=== PATIENT | male | born 1955 | race Two or more races ===

== ENCOUNTER 2017-10-27 14:47 | Emergency (ER) | payer MEDICARE, OTHER ==
[~2017-10-27] VITALS: Ht 170.2 cm; Wt 78.9 kg
--- NOTE | 2017-10-27 14:50 | NUR ---
[id number] FROM [address] FOR ALOC, TACHYCARDIA. Hx OF METHAMPHETAMINE ABUSE. GOWNED AND PLACED ON CONT MONITOR. HEART RATE NOTED 167, RHYTHM APPEARS SVT. PT DENIES CP/SOB. ALL NEEDS ARE ATTENDED, DR LOPEZ NOTIFIED
--- NOTE | 2017-10-27 15:00 | NUR ---
PT RHYTHM CONVERTED TO SINUS RHYTM AT 82. PT HAS NO COMPLAINTS
[2017-10-27] MEDS ORDERED: IV NS 0.9% 1,000 ML BAG IV ONE (15:30)
[2017-10-27 15:38] LABS: BASOPHILS # (AUTO) 0.2 /CMM (0.0-0.2); BASOPHILS % (AUTO) 2.1 % (0.0-2.0); EOSINOPHILS % (AUTO) 0.4 % (0.0-6.0); HEMATOCRIT 45 % (39-51); HEMOGLOBIN 14.9 g/dL (13.5-17.5); LYMPHOCYTES # (AUTO) 1.1 /CMM (0.8-4.8); LYMPHOCYTES % (AUTO) 13.9 % (20.0-44.0); MEAN CORPUSCULAR HGB CONC 33 g/dl (31.0-36.0); MEAN CORPUSCULAR VOLUME 85 fL (80-96); MONOCYTES # (AUTO) 0.6 /CMM (0.1-1.30); MONOCYTES % (AUTO) 7.6 % (2.0-12.0); NEUTROPHILS # (AUTO) 5.7 /CMM (1.8-8.9); PLATELET COUNT (AUTO) 260 /CMM (150-450); RDW COEFFICIENT OF VARIATION 13.7 (11.5-15.0); RED BLOOD CELL COUNT(AUTO) 5.27 MIL/uL (4.5-6.0); WHITE BLOOD COUNT (AUTO) 7.6 K/uL (4.3-11.0)
[2017-10-27 15:59] LABS: ALBUMIN 3.5 g/dL (3.4-5.0); BILIRUBIN,TOTAL 0.8 mg/dL (0.2-1.0); CALCIUM, SERUM 9.5 mg/dL (8.5-10.1); CREATININE 1.7 mg/dL (0.6-1.3); POTASSIUM 5.2 mmol/L (3.5-5.1); TOTAL PROTEIN, SERUM 7.7 g/dL (6.4-8.2)
--- NOTE | 2017-10-27 17:22 | NUR ---
IV removed. Catheter intact and site benign. Pressure and 4x4 applied to site. No bleeding noted.Patient discharged to home in stable condition. Written and verbal after care instructions given. Patient verbalizes understanding of instruction.
[2017-10-27 17:28] VITALS: BP 105/68
== END 2017-10-27 17:28 | disposition home or self-care (01) ==
LOC: ER 14:48
DX: I47.1 Supraventricular tachycardia (principal); R42 Dizziness and giddiness; F17.200 Nicotine dependence, unspecified, uncomplicated; F41.9 Anxiety disorder, unspecified; F32.9 Major depressive disorder, single episode, unspecified; G89.29 Other chronic pain; Z98.890 Other specified postprocedural states
CPT/HCPCS: 36415; 80053; 85025; 93005; 96360; 99285; A4606; Z7610

== ENCOUNTER 2018-09-16 04:07 | Inpatient (IN) | payer OTHER, MEDICAID ==
[~2018-09-16] VITALS: Ht 170.2 cm; Wt 80.7 kg
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
[2018-09-16] MEDS ORDERED: MAG HYDROX/AL HYDROX/SIMETH 30 ML UDC ONE (04:55)
[2018-09-16] MEDS ORDERED: ASPIRIN 81 MG TAB.CHEW ONE (04:56)
[2018-09-16] MEDS ORDERED: LORAZEPAM INJ 2 MG/ML VIAL ONE (04:56)
[2018-09-16 04:59] LABS: BASOPHILS # (AUTO) 0.1 /CMM (0.0-0.2); BASOPHILS % (AUTO) 0.6 % (0.0-2.0); EOSINOPHILS % (AUTO) 0.2 % (0.0-6.0); HEMATOCRIT 42 % (39-51); HEMOGLOBIN 14.4 g/dL (13.5-17.5); LYMPHOCYTES # (AUTO) 0.8 /CMM (0.8-4.8); LYMPHOCYTES % (AUTO) 6.5 % (20.0-44.0); MEAN CORPUSCULAR HGB CONC 34 g/dl (31.0-36.0); MEAN CORPUSCULAR VOLUME 87 fL (80-96); MONOCYTES # (AUTO) 0.6 /CMM (0.1-1.30); MONOCYTES % (AUTO) 5.2 % (2.0-12.0); NEUTROPHILS # (AUTO) 10.8 /CMM (1.8-8.9); NEUTROPHILS % (AUTO) 87.5 % (43.0-81.0); PLATELET COUNT (AUTO) 258 /CMM (150-450); RED BLOOD CELL COUNT(AUTO) 4.86 MIL/uL (4.5-6.0); WHITE BLOOD COUNT (AUTO) 12.4 K/uL (4.3-11.0)
[2018-09-16] MEDS ORDERED: MAG HYDROX/AL HYDROX/SIMETH 30 ML UDC PO ONE (05:00)
[2018-09-16] MEDS ORDERED: ASPIRIN 81 MG TAB.CHEW PO ONE (05:00)
[2018-09-16] MEDS ORDERED: LORAZEPAM INJ 2 MG/ML VIAL IV ONE (05:00)
[2018-09-16] MEDS ORDERED: ATORVASTATIN 40 MG TABLET PO SCH ×3 (05:00→22:00)
[2018-09-16 05:11] LABS: CALCIUM, SERUM 8.9 mg/dL (8.5-10.1); CARBON DIOXIDE 24 mmol/L (21-32); CHLORIDE 103 mmol/L (98-107); CREATININE 1.5 mg/dL (0.6-1.3); GLUCOSE 123 mg/dL (74-106); POTASSIUM 4.4 mmol/L (3.5-5.1); SODIUM SERUM 139 mmol/L (136-145); UREA NITROGEN, BLOOD 20 mg/dL (7-18)
[2018-09-16 05:14] LABS: SALICYLATE 4.6 mg/dL (2.8-20.0)
[2018-09-16 05:18] LABS: ACETAMINOPHEN 0 ug/ml (10-30); ALCOHOL, BLOOD < 3 mg/dL (0-0)
--- NOTE | 2018-09-16 05:27 | NUR ---
DR AKINS PAGED FOR CARDIOLOGY CONSULT.
--- NOTE | 2018-09-16 05:28 | NUR ---
critical lab Trop I: 0.636. Informed DR Odonnell
[2018-09-16] MEDS ORDERED: HEPARIN SODIUM, PORCINE 5000 UNITS/1 ML VIAL IV ONE (05:30)
[2018-09-16] MEDS ORDERED: HEPARIN INFUSION/D5W 500 ML IV PRN ×2 (05:30→06:00)
[2018-09-16] MEDS ORDERED: HEPARIN SODIUM, PORCINE 5000 UNITS/1 ML VIAL ONE (05:34)
--- NOTE | 2018-09-16 05:34 | NUR ---
EPIC PAGED FOR PANEL CALL.
--- NOTE | 2018-09-16 05:40 | NUR ---
room changed to [facility]
--- NOTE | 2018-09-16 05:55 | NUR ---
report given to shirlene le for marcin
[2018-09-16] MEDS ORDERED: ATORVASTATIN 40 MG TABLET ONE (05:56)
--- NOTE | 2018-09-16 05:57 | NUR ---
Lipitor 80mg out in ER pyxis. Had to override in [facility].
[2018-09-16] MEDS ORDERED: ONDANSETRON HCL/PF 4 MG/2 ML VIAL IVP PRN ×2 (06:00→06:30)
[2018-09-16] MEDS ORDERED: ACETAMINOPHEN 325 MG TABLET PO PRN ×2 (06:00→06:30)
[2018-09-16] MEDS ORDERED: MORPHINE SULFATE INJ 2 MG/ML DISP.SYRIN IV PRN ×2 (06:00→06:30)
[2018-09-16] MEDS ORDERED: MAG HYDROX/AL HYDROX/SIMETH 30 ML UDC PO PRN ×2 (06:00→06:30)
[2018-09-16] MEDS ORDERED: MAGNESIUM HYDROXIDE 30 ML UDC PO PRN ×2 (06:00→06:30)
[2018-09-16] MEDS ORDERED: HEPARIN INFUSION/D5W 0 ML IV ONE (06:00)
--- NOTE | 2018-09-16 06:10 | NUR ---
pt refused to take lipitor
--- NOTE | 2018-09-16 06:24 | NUR ---
coag labs still pending.
[2018-09-16 06:26] LABS: CHOLESTEROL 169 mg/dL (<200); CREATINE KINASE, TOTAL 4882 U/L (39-308); HDL CHOLESTEROL 70 mg/dL (40-60); LDL 84 mg/dL (0-99); TRIGLYCERIDES 81 mg/dL (30-150)
--- NOTE | 2018-09-16 06:26 | NUR ---
ER CANCELLED HEPARIN DRIP. WAS INFORMED BY ADMITTING MD TO START HEPARIN DRIP ON FLOOR ONCE COAGULATION STUDIES ARE BACK. ER MD AWARE.
[2018-09-16] MEDS ORDERED: NITROGLYCERIN 0.4 MG/TAB BOTTLE SL ONE (06:30)
[2018-09-16] MEDS ORDERED: TEMAZEPAM 15 MG CAPSULE PO PRN (06:30)
[2018-09-16] MEDS ORDERED: HYDROCODONE/APAP 5/325MG 1 EACH TABLET PO PRN (06:30)
--- NOTE | 2018-09-16 06:41 | NUR ---
PT STATES HE DOES NOT TAKE ANY HOME MEDICATIONS.
--- NOTE | 2018-09-16 06:55 | NUR ---
pt transfered to [facility] floor per ACLS protocol.
--- NOTE | 2018-09-16 07:15 | NUR ---
LABEL PRESS OPERATOR NOTE PATIENT TRANSFERED IN [facility] FROM ER. PATIETN LETHARGIC, ON O2 AND NOT VERBALIZING PAIN AT THIS TIME. PATIENT IS IN BED IV PATENT RT AC. NO FLUIDS RUNNING. PT INR DONE AT 0500 THIS AM, THE IV HEPARIN DRIP WAS NOT HUNG IN THE ER, AND RN ON [facility] INIITATED DRIP FROM PHARMACY. RN IN [facility] PUT IN ORDER FOR REPEAT COAGULATION STUDIES TO BE DONE AT 1100 WHICH IS EVERY 6 HOURS PER HOSPITAL PROTOCAL. VITALS WNL, MONITOR PATIENT, ORIENT HIM TO SURROUNDINGS, SAFETY MEASURES IN PLACE. CONTINUE TO MONITOR. AWARITING ORDER FROM .
[2018-09-16] MEDS ORDERED: PANTOPRAZOLE 40 MG TABLET.DR PO SCH (07:30)
[2018-09-16 08:00] VITALS: BP 137/68
[2018-09-16] MEDS: HEPARIN INFUSION/D5W 500 ML IV PRN (08:12)
[2018-09-16] MEDS: CARVEDILOL 3.125 MG TABLET PO SCH ×2 (08:32→22:39)
[2018-09-16] MEDS: ASPIRIN 81 MG TAB.CHEW PO SCH (08:32)
[2018-09-16] MEDS ORDERED: ASPIRIN 81 MG TAB.CHEW PO SCH (09:00)
[2018-09-16 12:00] VITALS: BP 112/67
--- NOTE | 2018-09-16 13:25 | NUR ---
RN NOTE PATIENT AWAKE IN BED EATING LUNCH. UPDATED HIM ON HIS CONDITION, MADE HIM AWARE OF EXAMS MD WANTS TO RUN. PARTICIPATING IN CARE. AWAITING LAB RESULTS FOR COAGULATION STUDIES TO CONTINUE TO RUN HEPARIN DRIP. CONTINUE TO MONITOR.
--- NOTE | 2018-09-16 14:02 | NUR ---
RN NOTE APTT DRAWN 6 HOURS AFTER INITIAL DOSE GIVEN. LEVEL REMAINS AT NORMAL, NO CHANGE IN RATE OF INFUSION PER HOSPITAL PROTOCAL. NURSE ORDERED REPEAT TEST TO BE DONE AT 0500 5/8 WHICH IS 24 HOURS AFTER INITIAL TEST WAS DONE IN ER. CONTINUE TO MONITOR FOR BLEEDING AND SAFETY.
--- NOTE | 2018-09-16 15:07 | NUR ---
DWARF TREE GROWER SPOKE BY PHONE WITH DR. LOCKHART REGARDING PT CTA, NOTIFIED PT HR IS ELEVATED WITH BP IN THE 110S, ADVISED TO HOLD THE TEST UNTIL PT CONDITION IMPROVES, WILL ASSESS PT TOMORROW FOR CTA
--- NOTE | 2018-09-16 15:44 | NUR ---
RN NOTE SURGERY POSTONED RN CALLED FROM SURGERY, WILL HOLD OFF ON CTA DUE TO LOW BLOOD PRESSURE AND ELEVATED HEART RATE. JIG AND FIXTURE BUILDER AWARE OF VITALS CHARGE NURSE AWARE. STILL ADMINISTER AM BLOOD PRESSURE MEDICATIONS AND MONTIOR FOR PROCEDURE TOMORROW.
[2018-09-16 16:00] VITALS: BP 95/61
[2018-09-16 20:00] VITALS: BP 99/63
--- NOTE | 2018-09-16 20:00 | NUR ---
[facility] RN OPENING NOTES RECEIVED REPORT FROM RM GAR. PATIENT A/A/O X4, ABLE TO MAKE NEEDS KNOWN. BREATHING EVEN & UNLABORED, TOLERATING ROOM AIR. DENIES ANY SOB OR DIFFICULTY BREATHING. ON TELE W/ SINUS RHYTHM, HR 93. DENIES ANY CHEST PAIN OR DISCOMFORT @ THIS TIME. RIGHT AC IV #20 INTACT & PATENT W/ DRESSING CDI & HEPARIN DRIP INFUSING WELL @ 29 ML/HR. NO SIGNS OF COMPLICATION NOTED. ABLE TO AMBULATE INDEPENDENTLY BUT INSTRUCTED TO USE CALL LIGHT FOR ASSISTANCE. SAFETY MEASURES IN PLACE W/ SIDE RAILS UP & BED ALARM ON. WILL CONTINUE TO MONITOR.
[2018-09-17] VITALS (7 sets, daily range): BP systolic 91–103; BP diastolic 49–68
[2018-09-17] MEDS: HEPARIN INFUSION/D5W 500 ML IV PRN (02:54)
[2018-09-17 06:36] LABS: ALBUMIN 2.7 g/dL (3.4-5.0); BILIRUBIN,TOTAL 0.4 mg/dL (0.2-1.0); CALCIUM, SERUM 8.5 mg/dL (8.5-10.1); CREATININE 1.1 mg/dL (0.6-1.3); MAGNESIUM 1.9 mg/dL (1.8-2.4); PHOSPHORUS 3.5 mg/dL (2.5-4.9); POTASSIUM 3.5 mmol/L (3.5-5.1); TOTAL PROTEIN, SERUM 6.8 g/dL (6.4-8.2)
[2018-09-17 06:39] LABS: BASOPHILS % (AUTO) 0.5 % (0.0-2.0); EOSINOPHILS % (AUTO) 3.3 % (0.0-6.0); HEMATOCRIT 39 % (39-51); HEMOGLOBIN 13.2 g/dL (13.5-17.5); LYMPHOCYTES # (AUTO) 1.7 /CMM (0.8-4.8); LYMPHOCYTES % (AUTO) 27.6 % (20.0-44.0); MEAN CORPUSCULAR HGB CONC 34 g/dl (31.0-36.0); MEAN CORPUSCULAR VOLUME 87 fL (80-96); MONOCYTES # (AUTO) 0.6 /CMM (0.1-1.30); MONOCYTES % (AUTO) 9.8 % (2.0-12.0); NEUTROPHILS # (AUTO) 3.6 /CMM (1.8-8.9); NEUTROPHILS % (AUTO) 58.8 % (43.0-81.0); PLATELET COUNT (AUTO) 226 /CMM (150-450); RED BLOOD CELL COUNT(AUTO) 4.49 MIL/uL (4.5-6.0); WHITE BLOOD COUNT (AUTO) 6.2 K/uL (4.3-11.0)
--- NOTE | 2018-09-17 07:15 | NUR ---
RN OPENING NOTES RECEIVED BEDSIDE REPORT, PATIENT IN BED AWAKE AND ALERT. ON TELE MONITOR, SR. NO COMPLAINS OF ANY PAIN OR ANY SOB AT THIS TIME. PATIENT ON ROOM AIR. SKIN INTACT. HAS A RIGHT AC #20 WITH HEPARIN DRIP AT 1450 UNITS/KG. STAT PTT ORDERED, RESULTS STILL PENDING. BED LOCKED AND IN LOWEST POSITION. CALL LIGHT WITHIN REACH. WILL CONTINUE TO MONITOR CLOSELY.
--- NOTE | 2018-09-17 07:56 | NUR ---
RN NOTES APTT RESULT CAME IN. IT WAS 51.6. NO CHANGES IN HEPARIN DRIP, STILL 1450 UNITS/KG. WILL ORDER LAB IN AM
[2018-09-17] MEDS: CARVEDILOL 3.125 MG TABLET PO SCH (08:07)
[2018-09-17] MEDS: ASPIRIN 81 MG TAB.CHEW PO SCH (08:07)
--- NOTE | 2018-09-17 08:47 | NUR ---
RN NOTES PATIENT WAS SUPPOSED TO HAVE CTA YESTERDAY AND IT WAS CANCELLED DUE TO HIGH HR AND LOW BP. THIS MORNING, PATIENT'S HR WAS 80 AND BP WAS ON THE LOW SIDE 102/68. SURGERY CALLED AND WANTS TO LOWER THE PATIENT'S HR TO AROUND 60'S AND BP TO NORMALIZE. WILL LET MD AWARE
--- NOTE | 2018-09-17 09:16 | NUR ---
RIN NOTES TRANSPORT IS HERE TO [facility]ACH[facility] PATIENT TO GO TO CTA Addendum: 09/17/18 at 0918 by ANDREA PORTER RN NS, METOPROLOL, AND NITROSTAT WILL BE GIVEN TO MANAGE PATIENT'S HR AND BP.
[2018-09-17] MEDS ORDERED: METOPROLOL TARTRATE INJ 5 MG/5 ML AMPUL IVP PRN (09:30)
[2018-09-17] MEDS ORDERED: IV NS 0.9% 500 ML IV ONE (09:30)
[2018-09-17] MEDS ORDERED: NITROGLYCERIN 0.4 MG/TAB BOTTLE SL PRN (09:30)
[2018-09-17] MEDS ORDERED: CT SWABBABLE VALVE TRANS SET 1 EA INFUS.SET MC ONE (09:35)
[2018-09-17] MEDS ORDERED: IOHEXOL-350 100 ML VIAL IV ONE (09:35)
[2018-09-17] MEDS ORDERED: IV NS 0.9% 250 ML IV ONE (09:35)
--- NOTE | 2018-09-17 10:20 | NUR ---
RN CTA NOTES 0933: Metoprolol 5mg IVP given for 107/62, 80 NSR, 20, 98%. Placed on O2 via NC at 2LPM. 0940: Metoprolol 5mg IVP given for 101/61, 77 NSR, 20, 100%. 0945: 98/54, 71 NSR, 20, 100% 0950: 96/62, 73 NSR 100%, 20 0955: 85/70, 65 NSR, 24, 100%, NS bolus ongoing 1000: 96/58, 69 NSR 20, 98%, NS bolus still ongoing 1005: CT ongoing, no Nitro per Dr. Adame, NSR 67, 99, 22 1010: 98/49, 70, 98%, 22 1013: CT with dye ongoing 1015: Procedure done, 99%, 71 NSR, 91/47, bolus done 1020: VSS 102/62. Patient A/Ox4, able to ambulate. Placed back to room. Endorsed to primary nurse. Encouraged patient to increase oral fluid intake, verbalized understanding. Informed RN to keep an eye on BP, stable now.
[2018-09-17] MEDS ORDERED: METOPROLOL TARTRATE INJ 5 MG/5 ML AMPUL ONE (10:27)
--- NOTE | 2018-09-17 10:30 | NUR ---
RN NOTES PATIENT CAME BACK FROM CTA. STABLE CONDITION. WAS GIVEN 2 METOPROLOLS AND 500ML IV. EDUCATED THE PATIENT TO DRINK A LOT OF WATER TO FLUSH OUT THE DYE THAT WAS USED FOR CTA AND TO INCREASE BP. LAST BP WAS 102/64
--- NOTE | 2018-09-17 12:22 | NUR ---
RN NOTES HEPARIN DRIP DC'S PER MD ORDER. PATIENT IS NOW MED SURG FROM TD. WILL REMOVE TELE MONITOR. SHELL MOLDING ROLLER BLAST OPERATOR INSIDE PATIENT'S ROOM
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
--- NOTE | 2018-09-17 16:00 | NUR ---
RN NOTE LAB CALLED. PATIENT'S CKMB FROM 09/16 CAME BACK, IT WAS HIGH 20.6. MD MADE AWARE
[2018-09-17] MEDS ORDERED: ASPI-605 PO (17:42)
--- NOTE | 2018-09-17 18:37 | NUR ---
RN CLOSING NOTES PATIENT IN BED AWAKE AND ALERT, WATCHING TV. HAS RIGHT AC #20 SALINE LOCKED. SKIN INTACT. AMBULATORY, INDEPENDENT TO SELF CARE. HEPARIN DRIP DC'S TODAY. ON 2L NC. WILL BE DC TOMORROW EARLY IN AM. EXIT CARE DONE. DISCHARGE ORDER PLACED BY MITZI REED. ALL MEDS GIVEN. NO COMPLAINS OF ANY PAIN OR ANY SOB. WILL ENDORSE TO NOC SHIFT FOR CONT OF CARE
--- NOTE | 2018-09-17 20:00 | NUR ---
MS RN NOTE: PATIENT RESTING IN BED, NO ACUTE DISTRESS NOTED. BREATHING EVEN AND UNLABORED, NO SOB NOTED. IV TO RAC IN PLACE. BED LOCKED AND IN LOWEST POSITION, CALL LIGHT IN REACH. WILL CONTINUE TO MONITOR.
--- NOTE | 2018-09-18 03:30 | NUR ---
MS RN NOTE:' PATIENT SLEEPING IN BED, NO ACUTE DISTRESS NOTED. BREATHING EVEN AND UNLABORED, NO SOB NOTED. BED LOCKED AND IN LOWEST POSITION, CALL LIGHT IN REACH. WILL CONTINUE TO MONITOR.
[2018-09-18 08:00] VITALS: BP 109/63
[2018-09-18 10:00] VITALS: BP 109/63
--- NOTE | 2018-09-18 10:15 | NUR ---
MARYCARMEN contacted [facility] and spoke to Juanito who informed SW that they are at full capacity and have no beds available. MARYCARMEN met with pt. bedside and informed him that no beds are available at this time. Pt. stated he will call them again tomorrow regarding bed availability. MARYCARMEN had provided homeless resources to pt. yesterday that pt. accepted. Pt. was given a TAP card. Homeless patient waiver form was signed by the pt. and placed in pt's chart. No other social service needs are requested at this time. MARYCARMEN updated [facility] MIYA Henry regarding pt's discharge plan.
--- NOTE | 2018-09-18 10:30 | NUR ---
SUPERVISOR MENDING NOTE PATIENT STABLE FOR DISCHARGE PER MD ORDER. PATIENTS VITALS STABLE, WNL. PATIENT UNDERSTANDS HE NEEDS TO FOLLOW UP WITH HEALTHCARE PROVIDER AND HIS CONDITION WAS EXPLAINED TO HIM BY MEDICAL STAFF. MD AWARE OF DISCHARGE, BENDING ROLL HAND INVOLVED TO ASSIST WITH TOKEN FOR TRANSPORT AND CUSTODIAL INFORMATION PROVIDED. PATIENT SIGNED WAIVER, ALL BELONGIGNS WERE GIVEN BACK TO PATIENT, NO WOUNDS, IN GOOD SPRIRITS, ASSISTED TO OUTSIDE OF THE BUILDING BY NURSE AND SAFETY PRECAUTIONS IN PLACE.
== END 2018-09-18 10:30 | disposition home or self-care (01) | DRG 280 ==
LOC: ER 04:08 → TELE-TD 06:20 → TELE1 15:18 → TELE-TD 20:17 → MEDSG1 09-17 12:26
PROVIDERS: ADMIT Nurse Practitioner Acute Care; ATTEND Nurse Practitioner Acute Care
DX: I21.4 Non-ST elevation (NSTEMI) myocardial infarction (principal); N17.0 Acute kidney failure with tubular necrosis; F17.210 Nicotine dependence, cigarettes, uncomplicated; I25.10 Atherosclerotic heart disease of native coronary artery without angina pectoris; F10.10 Alcohol abuse, uncomplicated; Z59.0 Homelessness; I25.2 Old myocardial infarction; Z86.73 Personal history of transient ischemic attack (TIA), and cerebral infarction without residual deficits; F19.10 Other psychoactive substance abuse, uncomplicated
CPT/HCPCS: 36415; 71045-TC; 75574; 80048-TC; 80053-TC; 80061-TC; 80305; 82550-TC; 83735-TC; 84100-TC; 84484-TC; 85025-TC; 85610-TC; 85730-TC; 87081-TC; 93307-TC; G0378; G0480; J1644; J2060; J3490; J7050; Q9967